=== PATIENT | female | born 1970 | race Caucasian/White ===

== ENCOUNTER → 2016-07-06 | Day surgery (SDC) | payer OTHER | END | disposition home or self-care (01) | LOC: FMAMMOTONE 09:49 | PROVIDERS: ATTEND Surgery | PROC: 0HBT3ZX Excision of Right Breast, Percutaneous Approach, Diagnostic (ICD-10-PCS; principal; 2016-07-06) | DX: N63 Unspecified lump in breast (principal); Z53.8 Procedure and treatment not carried out for other reasons | CPT/HCPCS: 19081 ==

== ENCOUNTER 2017-07-17 09:20 | Day surgery (SDC) | payer OTHER ==
[2017-07-14 15:15] VITALS: BMI 34.2
[2017-07-17 09:59] LABS: BASO % 0.3 % (0-2.0); EOS % 1.6 % (0-4.5); HEMATOCRIT 45.3 % (32.4-45.2); LYMPH % 20.2 % (8-40); MCH 30.4 pg (25.7-33.7); MCHC 33.2 g/dl (32.0-36.0); MEAN CELL VOLUME 91.4 fl (80-96); MEAN PLT VOLUME 7.2 fl (7.5-11.1); MONO % 8.8 % (3.8-10.2); NEUT % 69.1 % (42.8-82.8); PLATELET COUNT 259 K/MM3 (134-434); RBC 4.95 M/mm3 (3.60-5.2); RDW 12.9 % (11.6-15.6); WHITE BLOOD COUNT 9.9 K/mm3 (4.0-10.0)
[2017-07-17 10:11] LABS: INR 1.14 (0.82-1.09); PROTHROMBIN TIME (PATIENT) 12.9 SEC (9.98-11.88)
[2017-07-17] MEDS ORDERED: ACETAMINOPHEN 325 MG TABLET (FP) ONE (13:11)
[2017-07-17] MEDS ORDERED: oxyCODONE HCL 5 MG TABLET ONE (13:11)
[2017-07-17 15:32] VITALS: BP 106/76; PULSE 96
[2017-07-17 16:38] VITALS: TEMP 97.8
--- NOTE | 2017-07-18 17:23 | PATH ---
Surgical Pathology Report Patient Name: IRENE BHAGAT [facility]. Rec. #: [id number] /Age/Gender: 1970 (Age: 47) / F Account: [id number] Location: RADIOLOGY Taken: 07/17/2017 Received: 07/17/2017 Reported: 07/18/2017 Physicians: Denise Luis M.D. Specimen(s) Received RIGHT SUPRACLAVICULAR MASS Clinical History 47-year-old female with history of right breast lesions likely benign now with right supraclavicular lesion Final Diagnosis SUPRACLAVICULAR, MASS, RIGHT, BIOPSY: FRAGMENTS OF BENIGN FIBROMUSCULAR AND ADIPOSE SOFT TISSUE. SEE COMMENT. Comment: If clinically suspicious lesion, findings may not be group sales representative. Suggest clinical/radiologic correlation. Electronically Signed Carolin Dozier M.D. Gross Description Received in formalin labeled "right supraclavicular mass," is a 1.5 cm in length x 0.1 cm in diameter ramirez-red, cylindrical portion of soft tissue. The formalin is filtered and the specimen is submitted in toto in one cassette. /07/17/201707/17/2017
== END 2017-07-17 16:52 | disposition home or self-care (01) ==
LOC: JRADIR 09:20
PROVIDERS: ATTEND Internal Medicine Pulmonary Disease
PROC: 0JB53ZX Excision of Left Neck Subcutaneous Tissue and Fascia, Percutaneous Approach, Diagnostic (ICD-10-PCS; principal; 2017-07-17)
DX: D21.0 Benign neoplasm of connective and other soft tissue of head, face and neck (principal)
CPT/HCPCS: 36415; 71045-TC-FY; 76942-TC; 85025; 85610; 88305-TC

== ENCOUNTER 2017-09-18 05:11 | Day surgery (SDC) | payer OTHER ==
[2017-09-15 10:55] VITALS: BMI 34.2
[2017-09-18 13:30] VITALS: BP 107/67; PULSE 103; TEMP 98.3
== END 2017-09-18 13:45 | disposition home or self-care (01) ==
LOC: JASU-SURG 05:11
PROVIDERS: ATTEND Surgery
PROC: 0JB40ZZ Excision of Right Neck Subcutaneous Tissue and Fascia, Open Approach (ICD-10-PCS; principal; 2017-09-18)
PROC: 0JB40ZZ Excision of Right Neck Subcutaneous Tissue and Fascia, Open Approach (ICD-10-PCS; 2017-09-18)
DX: D48.1 Neoplasm of uncertain behavior of connective and other soft tissue (principal)
CPT/HCPCS: 84703; 88305-TC; 88313-TC; 94760

== ENCOUNTER 2018-11-20 14:51 | Emergency (ER) | payer OTHER | END 2018-11-20 17:25 | disposition home or self-care (01) | LOC: JER 14:51 ==

== ENCOUNTER 2023-06-08 04:44 | Day surgery (SDC) | payer OTHER ==
[2023-06-06 12:34] VITALS: BMI 39.9
[2023-06-08 12:21] VITALS: TEMP 98
[2023-06-08 12:57] VITALS: BP 101/63; PULSE 76; RESP 20
== END 2023-06-08 12:57 | disposition home or self-care (01) ==
LOC: JASU-ENDO 04:44
PROVIDERS: ATTEND Internal Medicine Gastroenterology
PROC: 0DJD8ZZ Inspection of Lower Intestinal Tract, Via Natural or Artificial Opening Endoscopic (ICD-10-PCS; principal; 2023-06-08 09:30)
DX: Z12.11 Encounter for screening for malignant neoplasm of colon (principal); K57.30 Diverticulosis of large intestine without perforation or abscess without bleeding
CPT/HCPCS: 81025

== ENCOUNTER 2023-08-10 10:44 | Emergency (ER) | payer OTHER ==
[2023-08-10 10:51] VITALS: RESP 20; TEMP 98.6; BMI 38.2
[2023-08-10] MEDS ORDERED: ACETAMINOPHEN INJECTION 100 ML IVPB ONE (11:59)
[2023-08-10] MEDS: ACETAMINOPHEN 1000 MG/100 ML BAG IVPB ONE (12:26)
[2023-08-10] MEDS: SODIUM CHLORIDE 1,000 ML IV STA (12:26)
[2023-08-10 12:28] LABS: BASO % 0.8 % (0-2.0); EOS % 0.9 % (0-4.5); HEMATOCRIT 40.1 % (32.4-45.2); LYMPH % 20.9 % (8-40); MCH 32.3 pg (25.7-33.7); MCHC 34.9 g/dl (32.0-36.0); MEAN CELL VOLUME 92.5 fl (80-96); MEAN PLT VOLUME 6.9 fl (7.5-11.1); MONO % 6.3 % (3.8-10.2); NEUT % 71.1 % (42.8-82.8); PH,URINE 5.5 (5.0-8.0); PLATELET COUNT 474 10^3/uL (134-434); RBC 4.34 M/mm3 (3.60-5.2); RDW 13.2 % (11.6-15.6); URINE APPEARANCE CLEAR; URINE BILIRUBIN NEGATIVE (NEGATIVE); URINE COLOR YELLOW; URINE GLUCOSE (UA) NEGATIVE (NEGATIVE); URINE KETONE NEGATIVE (NEGATIVE); URINE LEUK ESTERASE NEGATIVE (NEGATIVE); URINE NITRITE NEGATIVE (NEGATIVE); URINE PROTEIN NEGATIVE (NEGATIVE); URINE UROBILINOGEN 0.2 mg/dL (0.2-1.0); WHITE BLOOD COUNT 13.8 K/mm3 (4.0-10.0)
[2023-08-10 12:34] LABS: INR 1.38 (0.83-1.09); PROTHROMBIN TIME (PATIENT) 15.9 SEC (9.7-13.0)
[2023-08-10 12:37] LABS: ACTIVATED PTT 39.8 SECONDS (25.2-36.5)
[2023-08-10 14:57] LABS: POTASSIUM 3.4 mmol/L (3.5-5.1)
[2023-08-10 14:59] LABS: CALCIUM 9.5 mg/dL (8.5-10.1)
[2023-08-10 15:00] LABS: ALBUMIN 3.8 g/dl (3.4-5.0); BLOOD UREA NITROGEN 18.3 mg/dL (7-18); MAGNESIUM 2.4 mg/dL (1.8-2.4)
[2023-08-10 15:03] LABS: CREATININE 1.1 mg/dL (0.55-1.3); PHOSPHOROUS 3.9 mg/dL (2.5-4.9)
[2023-08-10 15:04] LABS: TOT PROT 8.3 g/dl (6.4-8.2)
[2023-08-10 15:05] LABS: BILIRUBIN,TOTAL 0.5 mg/dL (0.2-1)
[2023-08-10 17:31] VITALS: BP 110/61; PULSE 87
== END 2023-08-10 17:33 | disposition home or self-care (01) ==
LOC: JER 10:44
PROC: 3E033NZ Introduction of Analgesics, Hypnotics, Sedatives into Peripheral Vein, Percutaneous Approach (ICD-10-PCS; principal; 2023-08-10)
PROC: 3E0337Z Introduction of Electrolytic and Water Balance Substance into Peripheral Vein, Percutaneous Approach (ICD-10-PCS; 2023-08-10)
DX: R10.32 Left lower quadrant pain (principal); R19.7 Diarrhea, unspecified; R10.31 Right lower quadrant pain; K57.90 Diverticulosis of intestine, part unspecified, without perforation or abscess without bleeding; Z20.822 Contact with and (suspected) exposure to COVID-19
CPT/HCPCS: 0241U-QW; 36415; 74177-TC; 80053; 81003; 83605; 83690; 83735; 84100; 85025; 85610; 85730; 87040; 87086; 99285-25; J0131; Q9967